=== PATIENT | female | born 1975 | race Caucasian/White ===

== ENCOUNTER → 2018-07-17 09:09 | Outpatient (CLI) | payer OTHER, SELFPAY ==
--- NOTE | 2018-07-17 | DI.MG.S_ITS ---
BILATERAL DIGITAL SCREENING MAMMOGRAM 3D/2D WITH CAD: 07/17/2018 CLINICAL: Routine screening. Family history of breast cancer. Comparison is made to exam [facility]: [facility]. The tissue of both breasts is heterogeneously dense. This may lower the sensitivity of mammography. Current study was also evaluated with a Computer Aided Detection (CAD) system. No significant masses, calcifications, or other findings are seen in either breast. There has been no significant interval change. IMPRESSION: NEGATIVE There is no mammographic evidence of malignancy. A 1 year screening mammogram is recommended. This exam was interpreted at Station ID: [id number]. NOTE: For mammograms, a report in lay terms will be sent to the patient. Approximately 15% of breast malignancies will not be visualized mammographically. In the management of a palpable breast mass, a negative mammogram must not discourage biopsy of a clinically suspicious lesion. Electronically Signed By: Geremias rich/raman:07/19/2018 07:41:23 letter sent: Normal Exam ACR BI-RADS Category 1: Negative 3341F
== END ==
PROVIDERS: PCP Family Medicine; Visit Provider Specialist
DX: Z12.31 Encounter for screening mammogram for malignant neoplasm of breast (principal); Z80.3 Family history of malignant neoplasm of breast
CPT/HCPCS: 77063; 77067

== ENCOUNTER → 2019-09-19 16:53 | Outpatient (CLI) | payer OTHER, SELFPAY ==
--- NOTE | 2019-09-19 16:55 | DI.RAD.S_ITS ---
PROCEDURE: XR LUMBAR SPINE 2-3V INDICATIONS: low back pain TECHNIQUE: 3 views of the lumbar spine were acquired. COMPARISON: None. FINDINGS: Bones: 5 [id number] vertebrae are present. There is normal bony alignment. No vertebral body compression fractures. No suspicious bony lesions. There is mild to moderate disc space narrowing seen at the L3-L4 and L4-L5 levels. Partially bridging anterior osteophytes are seen at the L4-L5 level. Lower lumbar spine facet arthropathy is seen. Soft tissues: Overlying bowel gas pattern is normal. No suspicious soft tissue calcifications. IMPRESSION: Lower lumbar spine degenerative changes are seen. Dictated by: Toby Cornell M.D. on 09/19/2019 at 16:51 Approved by: Toby Cornell M.D. on 09/19/2019 at 16:53
--- NOTE | 2019-09-19 16:55 | DI.RAD.S_ITS ---
PROCEDURE: XR PELVIS 1-2V INDICATIONS: low back pain TECHNIQUE: 1 view(s) of the pelvis acquired. COMPARISON: [facility], CR, XR LUMBAR SPINE 2-3V, 09/19/2019, 16:59. FINDINGS: Bones: No fractures or dislocations. No suspicious bony lesions. Soft tissues: Visualized bowel gas pattern is normal. No suspicious soft tissue calcifications. Pelvic phleboliths are incidentally noted. IMPRESSION: Unremarkable plain film of the pelvis. Dictated by: Toby Cornell M.D. on 09/19/2019 at 16:53 Approved by: Toby Cornell M.D. on 09/19/2019 at 16:54
== END ==
PROVIDERS: PCP Internal Medicine; Referring Provider Internal Medicine; Visit Provider Internal Medicine
DX: M54.5 Low back pain (principal); M47.816 Spondylosis without myelopathy or radiculopathy, lumbar region
CPT/HCPCS: 72100; 72170

== ENCOUNTER → 2019-09-22 14:43 | Outpatient (CLI) | payer OTHER, SELFPAY ==
--- NOTE | 2019-09-22 | DI.MG.S_ITS ---
BILATERAL DIGITAL SCREENING MAMMOGRAM 3D/2D WITH CAD: 09/22/2019 CLINICAL: Routine screening. Family history of breast cancer. Comparison is made to exams dated: 07/17/2018 mammogram and 10/05/2013 mammogram - [facility]. The tissue of both breasts is heterogeneously dense. This may lower the sensitivity of mammography. Current study was also evaluated with a Computer Aided Detection (CAD) system. No significant masses, calcifications, or other findings are seen in either breast. There has been no significant interval change. IMPRESSION: NEGATIVE There is no mammographic evidence of malignancy. A 1 year screening mammogram is recommended. This exam was interpreted at Station ID: [id number]. NOTE: For mammograms, a report in lay terms will be sent to the patient. Approximately 15% of breast malignancies will not be visualized mammographically. In the management of a palpable breast mass, a negative mammogram must not discourage biopsy of a clinically suspicious lesion. Electronically Signed By: Kemar chaudhry/raman:09/22/2019 16:26:46 letter sent: Normal Exam ACR BI-RADS Category 1: Negative 3341F
== END ==
PROVIDERS: PCP Internal Medicine; Referring Provider Internal Medicine; Visit Provider Internal Medicine
DX: Z12.31 Encounter for screening mammogram for malignant neoplasm of breast (principal); Z80.3 Family history of malignant neoplasm of breast
CPT/HCPCS: 77063; 77067

== ENCOUNTER → 2020-02-29 09:37 | Outpatient (CLI) | payer OTHER, SELFPAY ==
[2020-02-29 10:11] LABS: COVID19 -Nasal RAPID Negative (Negative)
== END ==
PROVIDERS: PCP Internal Medicine; Visit Provider Specialist
DX: Z01.812 Encounter for preprocedural laboratory examination (principal); Z20.828 Contact with and (suspected) exposure to other viral communicable diseases
CPT/HCPCS: 87635

== ENCOUNTER 2020-03-01 11:27 | Day surgery (SDC) | payer OTHER, SELFPAY ==
[2020-02-27 15:21] VITALS: BMI 26.6
[2020-03-01] VITALS (11 sets, daily range): BP systolic 90–126; BP diastolic 48–77; PULSE 64–82; RESP 12–16; TEMP 36.5–37.2; O2SAT 94–100; BMI 25.4
--- NOTE | 2020-03-01 | PATH_ITS ---
[facility] Accession Number: [id number] . 01 Material submitted: . uterus - UTERUS AND BILATERAL FALLOPIAN TUBES . 01 Clinical history: . OPB . 02 Diagnosis: Uterus and Bilateral Fallopian Tubes, Laparoscopic Supracervical Hysterectomy with Bilateral Salpingectomies (Aggregate Weight 185 grams): Weakly proliferative endometrium; negative for glandular hyperplasia, cytologic atypia, or malignancy. Myometrium with patchy involvement by adenomyosis and with multiple intramural leiomyomas (0.2-4.2 cm in greatest dimension). Uterine serosa with patchy, mild adhesions, nonspecific. Falllopian tubes x2, one with focal, mild chronic salpingitis; negative for epithelial atypia or malignancy. [facility] 03/07/2020 1258 Local . 02 Electronically signed: . Kayla Hernandez MD, Pathologist NPI- [id number] . 01 Gross description: . The specimen is received in formalin, labeled uterus and bilateral fallopian tubes and consists of a 185 gram fragmented uterus and bilateral fallopian tubes. The cervix is not identified. The specimen measures 14.0 x 13.0 x 5.0 cm in aggregate. The serosa is call-pink and smooth. The endometrium is call-pink and measures 0.1 cm in thickness. The myometrium is call-pink and trabeculated. There are multiple call-white whorled leiomyomata and leiomyomata fragments, ranging from 0.2 to 4.2 cm. No areas of hemorrhage, necrosis, or cystic degeneration are identified. The fallopian tubes measure 4.5 cm in length x 0.6 cm in diameter and 8.2 cm in length x 1.0 cm in diameter. The serosa is call-pink to pink-purple and smooth. Sectioning reveals a call mucosa and a stellate lumen measuring up to 0.5 cm in diameter. [employer]ilities [employer] sections are submitted. . A1-A2 -Director Facilities Maintenance candidate endometrium. A3 - Myometrium. A4-A7 - Director Facilities Maintenance leiomyomata. A8-A11 - Fallopian tubes, inventory representative simple cross-sections and bisected fimbria. (EA:[id number]) A12-A13 - Candidate endometrium. (EA:[id number]) /[facility] 03/06/2020 0949 Local . 02 Pathologist provided ICD-10: D25.0, N25.0 . 02 CPT . 221969 Performed at: 01 [facility] [address] [place] [address], [place], [place] [id number] MD Kemar Mckeon MD Phone: [phone] Performed at: 02 [facility] [address] [place], [place] [id number] MD Kathleen Cifuentes MD Phone: [phone]
[2020-03-01] MEDS: LACTATED RINGERS 1,000 ML 100 ML IV (12:13)
--- NOTE | 2020-03-01 12:34 | PM.PREOP ---
Pre-operative Note COVID-19 COVID-19 status: Negative Result date/Date tested (Pos, Neg/Pending): 02/29/20 Interval Note History & Physical reviewed/Exam performed by Physician: Yes Changes to H&P: No
[2020-03-01] MEDS: CEFAZOLIN 2 GM/100 ML FROZ.PIGGY IV (13:22)
[2020-03-01] MEDS: BUPIVACAINE 0.5% W/ EPI (PF) 30 ML VIAL INJ (13:48)
--- NOTE | 2020-03-01 13:54 | SUR.OPER ---
Lithotomy on padded OR bed. [place] Pad Positioner under torso. Head on pillow, arms padded and tucked at sides. Legs secured in padded yellow fins stirrups.
[2020-03-01] MEDS: ROPIVACAINE 0.2% PF 2 MG/ML 10ML AMP 20 ML INJ (14:40)
--- NOTE | 2020-03-01 15:12 | PM.OP.1 ---
Operative Date/Time/Diagnoses Date of procedure: 03/01/20 Time of procedure: 15:12 Pre-op diagnosis: Menorrhagia with uterine fibroids Post-op diagnosis: same Procedure & Clinicians Procedure: Laparoscopic supracervical hysterectomy with bilateral salpingectomies Same procedure as scheduled: Yes Indications: Menorrhagia with uterine fibroids Surgeon: Lizzy Booth [employer] Inspector: Ester Lantigua Click Yes if Unassisted: No Anesthesia Type: General Operative Notes Findings: Normal intra-abdominal contents, bilateral fallopian tubes status post tubal ligation, normal ovaries bilaterally, enlarged irregular-shaped uterus from fibroids Closure Type: primary Specimen(s): other (Uterus above the level of the bladder and fallopian tubes) Estimated Blood Loss (mL): 100 Blood products transfused: none Procedure in detail: Patient is brought to the operating room where she underwent general anesthesia and placed in low [facility] stirrups. She was prepped and draped in the usual sterile fashion. A check list was reviewed with the staff in the room prior to beginning of the case. Patient had pulsatile stockings in place and functional. 2 g of Ancef were in prior to beginning of the case.. A Kumar catheter was placed. A single-tooth tenaculum was placed on the anterior lip of the cervix and the cervix dilated to a #6 Hegar dilator. The uterine manipulator was unable to be placed due to the prior ablation. The area of the umbilical incision and the 5 mm right and left lower quadrant incisions were injected with Marcaine. An incision was made with scalpel. The verries needle was placed into the abdomen and confirmed in the appropriate place with withdrawal on a syringe and then free flow of fluid down through the needle. The abdomen was insufflated with CO2. The needle was removed and a 5 mm trocar placed without difficulty. There did not appear to be any damage is placement of the trocar. The right and left lower quadrant incisions were made with the scalpel and the trochars placed without damage to internal structures. The PK forceps were used to cauterize the mesosalpinx followed by the utero-ovarian ligaments and round ligaments on both sides. Sequential bites were taken down the broad ligaments. The uterine arteries were cauterized. An incision was made above the level bladder pushing the bladder away from the cervix. The SANTY loop was placed around the uterus and the uterus was amputated above the level of the bladder. Bleeding was controlled with the PK forceps. The PK forceps were used to cauterize in the endocervical canal. A supracervical incision was made and an 11 mm port placed. A 15 mm Endo Catch bag was placed in the abdomen. The uterus and tubes were placed in the bag and brought up through the suprapubic port site. The Adin O was placed. The uterus was hand morselized. The abdomen was reinsufflated and adequate hemostasis was noted. 10 cc of ropivacaine were placed over the cervix stump. The trochars were removed and the CO2 allowed escape from the abdomen. The fascia layer of the suprapubic site was repaired with 0 Polysorb suture. Skin was closed with 4-0 Monocryl suture at the suprapubic site and the other 3 sites. The patient went to recovery room in good condition. Counts of instruments and sponges were correct. Dr. Lantigua was present for the entire case to assist with holding of the camera, retraction, cauterizing the left side of the uterus, and assisting with morselization. Complications: none Post-operative Condition: stable Disposition: same day surgery Plan for aftercare: Patient prefers to be discharged home today. Follow-up appointment in 2 weeks.
--- NOTE | 2020-03-01 15:50 | SUR.PHASEI ---
Report called to LYNDA Shrestha. Pt transferred to room 220 by Emile León RN. , Kemar, notified of room assignment.
--- NOTE | 2020-03-01 19:41 | PC.NURSE ---
Discharge Note Patient A&O, VSS, RA, no complaints of chest pain or shortness of breath. Discharge packet given to patient along with follow-up instructions, no questions or concerns. All belongings packed and given to patient. PIV discontinued. Patient taken down via wheelchair to POV.
== END 2020-03-01 19:00 | disposition home or self-care (01) ==
LOC: OR 11:29 → AC 11:30
PROVIDERS: PCP Internal Medicine; Referring Provider Specialist; Visit Provider Specialist
PROC: 0UT94ZL Resection of Uterus, Supracervical, Percutaneous Endoscopic Approach (ICD-10-PCS; CPT 58542; principal; 2020-03-01 12:45)
DX: D25.1 Intramural leiomyoma of uterus (principal); N70.11 Chronic salpingitis; N73.6 Female pelvic peritoneal adhesions (postinfective)
CPT/HCPCS: 58542; J0690; J1100; J1885; J2405; J2704; J2795; J3010

== ENCOUNTER → 2020-07-05 13:17 | Outpatient (CLI) | payer OTHER, SELFPAY ==
[2020-07-05 16:47] LABS: Thyroid Stimulating Hormone 1.04 uIU/mL (0.47-4.68)
[2020-07-05 18:25] LABS: Free T4, Direct Thyroxine 1.46 ng/dL (0.78-2.19)
== END ==
PROVIDERS: PCP Internal Medicine; Referring Provider Internal Medicine; Visit Provider Internal Medicine
DX: R53.83 Other fatigue (principal); Z13.29 Encounter for screening for other suspected endocrine disorder
CPT/HCPCS: 36415; 84439; 84443

== ENCOUNTER → 2021-01-10 13:09 | Outpatient (CLI) | payer OTHER, SELFPAY ==
[2021-01-10 14:49] LABS: Add Manual Diff / Slide Review NO; Basophils Absolute Auto 100 /uL (0-100); Basophils Percent Auto 0.7 % (0-2); Eosinophils Absolute Auto 100 /uL (0-450); Hemoglobin 13.8 g/dL (12.0-16.0); Lymphocytes Absolute Auto 2300 /uL (1100-4500); Lymphocytes Percent Auto 30.6 % (25-40); Mean Corpuscular HGB Conc 33.7 % (30-36); Mean Corpuscular Hemoglobin 30.9 PG (26-34); Mean Corpuscular Volume 91.6 fL (80-100); Monocytes Absolute Auto 600 /uL (0-900); Monocytes Percent Auto 7.4 % (3-14); Neutrophils Absolute Auto 4500 /uL (1500-7000); Neutrophils Percent Auto 60.3 % (50-75); Platelet Count 305 X10^3/uL (150-400); Red Blood Cell Count 4.48 X10^6/uL (4.0-5.2); Red Cell Distribution Width 13.2 % (11.6-14.8); White Blood Cell Count 7.5 X10^3/uL (4.5-11.0)
[2021-01-10 14:53] LABS: Alanine Aminotransferase 19 IU/L (<35); Albumin 4.7 g/dL (3.5-5.0); Albumin Globulin Ratio 1.8 (1.0-2.8); Alkaline Phosphatase 56 U/L (38-126); Aspartate Aminotransferase 21 IU/L (14-36); Bilirubin Total 0.6 mg/dL (0.2-1.3); Blood Urea Nitrogen 18 mg/dL (7-17); Calcium 9.6 mg/dL (8.4-10.2); Carbon Dioxide 27 mmol/L (22-32); Chloride 103 mmol/L (98-107); Cholesterol 165 mg/dL (140-199); Estimated Glomerular Filt Rate > 60.0 mL/min (>60); Globulin 2.6 g/dL (1.7-4.1); Glucose 93 mg/dL (70-100); HDL Cholesterol 60 mg/dL (40-60); HEMOLYSIS < 15 (0-50); LDL Cholesterol Calculated 87 mg/dL (<100); Potassium 4.5 mmol/L (3.4-5.1); Sodium 138 mmol/L (137-145); Total Protein 7.3 g/dL (6.3-8.2); Triglycerides 90 mg/dL (35-150)
[2021-01-10 16:55] LABS: Hep C Virus Ab w/Reflex Quant NEGATIVE s/c (NEGATIVE)
[2021-01-11 03:36] LABS: Hepatitis B Surf AB Quant 16.9 mIU/mL (Immunity>9.9)
[2021-01-11 07:35] LABS: Parathyroid Hormone Int 40 pg/mL (15-65)
== END ==
PROVIDERS: PCP Internal Medicine; Referring Provider Naturopath; Visit Provider Naturopath
DX: Z00.00 Encounter for general adult medical examination without abnormal findings (principal); E23.7 Disorder of pituitary gland, unspecified; Z83.79 Family history of other diseases of the digestive system
CPT/HCPCS: 36415; 80053; 80061; 83970; 85025; 86706; 86803

== ENCOUNTER → 2021-09-16 16:24 | Outpatient (CLI) | payer OTHER, SELFPAY ==
--- NOTE | 2021-09-16 | DI.MG.S_ITS ---
BILATERAL DIGITAL SCREENING MAMMOGRAM 3D/2D WITH CAD: 09/16/2021 CLINICAL: Routine screening. Family history of breast cancer. Comparison is made to exams dated: 09/22/2019 mammogram, 07/17/2018 mammogram, and 10/05/2013 mammogram - [facility]. The tissue of both breasts is heterogeneously dense. This may lower the sensitivity of mammography. Current study was also evaluated with a Computer Aided Detection (CAD) system. No significant masses, calcifications, or other findings are seen in either breast. There has been no significant interval change. IMPRESSION: NEGATIVE There is no mammographic evidence of malignancy. A 1 year screening mammogram is recommended. This exam was interpreted at Station ID: [id number]. NOTE: For mammograms, a report in lay terms will be sent to the patient. Approximately 15% of breast malignancies will not be visualized mammographically. In the management of a palpable breast mass, a negative mammogram must not discourage biopsy of a clinically suspicious lesion. Electronically Signed By: Rey calderón/raman:09/17/2021 08:31:19 letter sent: Normal Exam ACR BI-RADS Category 1: Negative 3341F
== END ==
PROVIDERS: PCP Internal Medicine; Referring Provider Internal Medicine; Visit Provider Internal Medicine
DX: Z12.31 Encounter for screening mammogram for malignant neoplasm of breast (principal); Z80.3 Family history of malignant neoplasm of breast
CPT/HCPCS: 77063; 77067

== ENCOUNTER 2022-12-07 18:04 | Emergency (ER) | payer OTHER, SELFPAY ==
[2022-12-07 18:17] VITALS: BP 138/70; PULSE 66; RESP 16; TEMP 36.9; O2SAT 98; BMI 26.6
--- NOTE | 2022-12-07 21:43 | ED.SKABFB ---
HPI - Skin/Abscess/Foreign Bdy General Chief complaint: Skin/Abscess/Foreign Body Stated complaint: Stung t-3 Time Seen by Provider: 12/07/22 21:42 Source: patient Mode of arrival: Family Vehicle Limitations: no limitations History of Present Illness HPI narrative: This is a 47-year-old female with history of mast cell activation who presents with complaint of a sting from likely a yellow jacket about 3 days ago. Patient states it was her under arms she saw them flying around felt a sting and since then has had increasing redness and swelling on the underside of her arm. Patient states it just continues to slowly worsened. It is painful. She has not had any fevers or chills. No chest pain or shortness of breath, no tightness or swelling of her lips tongue. No rash elsewhere. No nausea or vomiting. She is chronic diarrhea she states no new changes. No black or bloody stools. Denies any other symptoms or issues. Patient has not had reactions like this in the past. She is not on any daily medications. Related Data Home Medications Medication Instructions Recorded Confirmed multivitamin,ev-hnro-yopnolrs 1 tab PO DAILY 07/15/18 01/21/22 (Complete Multivitamin tablet) Previous Rx's Medication Instructions Recorded clindamycin HCl 300 mg capsule 300 mg PO Q6H #28 caps 12/07/22 Allergies Allergy/AdvReac Type Severity Reaction Status Date / Time Penicillins Allergy Unknown Patient Verified 12/07/22 18:17 does not know. I was told that since I was a kid. Review of Systems Review of Systems ROS Unobtainable: All systems reviewed & are unremarkable except as noted in HPI and below Patient History Medical History Abnormal peripheral vision Fibroids (~2009) Hearing loss Heavy menstrual period (~2011) History of tumor (~1998) Irregular menstrual cycle Painful menstrual periods Peripheral vision loss Presence of intrauterine contraceptive device (06/02/16) Surgical History Anesthesia History of knee surgery (~2015) History of prior ablation treatment (~2017) Status post delivery (~1994) Status post cholecystectomy (~1992) Status post tubal ligation Family History Father Parkinson's disease Kidney failure Mother Diabetes mellitus Congestive heart failure Sister Diabetes mellitus Grandmother Heart disease Hyperlipidemia Hypertension Social History household members: spouse Smoking Status: Former smoker Tobacco: How many years used: 20 second hand exposure: No alcohol intake: current substance use type: does not use Smoking Status: Former smoker alcohol intake frequency: a few times a week Substance Use Type: does not use Exam Narrative Exam Narrative: GENERAL: Alert and oriented x three, female in mild distress. HEENT: Head normocephalic, atraumatic, EOMI, pupils reactive, face symmetric, moist mucous membranes NECK: Supple, full range of motion CARDIOVASCULAR: Regular rate and rhythm without murmurs, rubs or gallops. RESPIRATORY: Breath sounds equal bilaterally, no wheezes rales or rhonchi. ABDOMEN: Soft, nontender. Normoactive bowel sounds all 4 quadrants. No guarding or rebound, rigidity, no mass EXTREMITIES: Normal range of motion, no clubbing or edema. Neurovascularly intact. Patient has swelling knee upper arm of the right upper extremity on the underside extending from about the elbow upwards. Does not really include the joint itself. There is erythema there is some slight swelling, blanches easily. There is no petechiae vesicles or other skin changes. Feels slightly tight but no induration, no fluid collections or fluctuance. No stinger is easily visualized. There does appear to be a small spot where patient was stung. NEUROLOGICAL: Cranial nerves II through XII grossly intact. Moving all extremities SKIN: Warm, dry, no petechiae, no rashes or lesions. Initial Vital Signs Initial Vital Signs: Vital Signs Temperature 98.5 F 12/07/22 18:17 Pulse Rate 66 12/07/22 18:17 Respiratory Rate 16 12/07/22 18:17 Blood Pressure 138/70 12/07/22 18:17 Pulse Oximetry 98 12/07/22 18:17 Oxygen Delivery Method Room Air 12/07/22 18:17 Course Orders Ordered: Discontinued Medications Clindamycin HCl (Clindamycin 150 Mg Capsule) 300 mg PO NOW ONE Stop: 12/07/22 21:50 Last Admin: 12/07/22 21:52 Dose: 300 mg Documented By: KEMAL Vital Signs Vital signs: Vital Signs - 8 hr 12/07/22 21:53 Pulse Rate 83 Respiratory Rate 16 Blood Pressure 119/64 Pulse Oximetry 97 MDM - Skin/Abscess/Foreign Bdy MDM Narrative Medical decision making narrative: 47-year-old female who appears to be developing a cellulitis on her right upper extremity. Does not appear to be having any allergic type reaction at this time about 3 days since initial and has had continued redness slight swelling of the area that is extending. Patient has appropriate vitals no changes concerning for sepsis or other systemic changes. Plan for oral antibiotic, close watching and return precautions. Patient was marked here in the emergency department. Discharge Plan Departure Patient Disposition: Home Clinical Impression: Cellulitis Qualifiers: Site of cellulitis: extremity Site of cellulitis of extremity: upper extremity Laterality: right Qualified Code(s): L03.113 - Cellulitis of right upper limb Instructions: DI for Cellulitis -- Adult Activity Restrictions/Additional Instructions: You appear to have a cellulitis or infection of the skin of her upper extremity. Take antibiotics until completed. It usually takes about 24-48 hours for antibiotics to make much change to the infection. Prescription sent to [facility] in [place]. Please return for fevers, rapidly worsening swelling, redness, pain, new numbness, tingling or weakness. Difficulty with movement of your arm, chest pain or shortness of breath, nausea or vomiting, passing out or other new or concerning changes. Prescriptions: New clindamycin HCl 300 mg capsule 300 mg PO Q6H Qty: 28 0RF No Action Complete Multivitamin tablet 1 tab PO DAILY Referrals: Jose Enrique Marshall MD [Primary Care Provider] - Stand Alone Forms: Patient Portal/API
[2022-12-07] MEDS: CLINDAMYCIN 150 MG CAPSULE 300 MG PO (21:52)
[2022-12-07 21:53] VITALS: BP 119/64; PULSE 83; RESP 16; O2SAT 97
== END 2022-12-07 21:57 | disposition home or self-care (01) ==
PROVIDERS: Emergency Provider Emergency Medicine; PCP Internal Medicine
DX: L03.113 Cellulitis of right upper limb (principal)
CPT/HCPCS: 99283

== ENCOUNTER → 2023-02-12 07:16 | Outpatient (CLI) | payer OTHER, SELFPAY ==
[2023-02-12 08:23] LABS: Add Manual Diff / Slide Review NO; Basophils Absolute Auto 0 /uL (0-100); Basophils Percent Auto 0.7 % (0-2); Eosinophils Absolute Auto 100 /uL (0-450); Eosinophils Percent Auto 1.5 % (2-4); Hematocrit 38.6 % (36-46); Hemoglobin 13.2 g/dL (12.0-16.0); Lymphocytes Absolute Auto 1700 /uL (1100-4500); Lymphocytes Percent Auto 31.6 % (25-40); Mean Corpuscular Hemoglobin 31.3 PG (26-34); Monocytes Absolute Auto 500 /uL (0-900); Monocytes Percent Auto 9.4 % (3-14); Neutrophils Absolute Auto 3000 /uL (1500-7000); Neutrophils Percent Auto 56.8 % (50-75); Platelet Count 271 X10^3/uL (150-400); Red Cell Distribution Width 13.7 % (11.6-14.8); White Blood Cell Count 5.3 X10^3/uL (4.5-11.0)
[2023-02-12 08:27] LABS: Hemoglobin A1C% w Est Avg Glu 5.5 % (4.0-6.0)
[2023-02-12 08:47] LABS: Alanine Aminotransferase 16 IU/L (<35); Albumin 4.1 g/dL (3.5-5.0); Albumin Globulin Ratio 1.8 (1.0-2.8); Alkaline Phosphatase 52 U/L (38-126); Aspartate Aminotransferase 18 IU/L (14-36); BUN Creatinine Ratio 23.3 (6-22); Bilirubin Total 0.4 mg/dL (0.2-1.3); Blood Urea Nitrogen 17 mg/dL (7-17); Calcium 9.3 mg/dL (8.4-10.2); Carbon Dioxide 25 mmol/L (22-32); Chloride 105 mmol/L (98-107); Cholesterol 135 mg/dL (140-199); Estimated Glomerular Filt Rate > 60 mL/min (>60); Globulin 2.3 g/dL (1.7-4.1); Glucose 96 mg/dL (70-100); HDL Cholesterol 54 mg/dL (40-60); HEMOLYSIS < 15 (0-50); LDL Cholesterol Calculated 69 mg/dL (<100); Potassium 4.5 mmol/L (3.4-5.1); Sodium 136 mmol/L (137-145); Total Protein 6.4 g/dL (6.3-8.2); Triglycerides 58 mg/dL (35-150)
[2023-02-14 15:10] LABS: Insulin Level Total 3.9 uIU/mL (2.6-24.9)
== END ==
PROVIDERS: PCP Internal Medicine; Referring Provider Naturopath; Visit Provider Naturopath
DX: Z00.00 Encounter for general adult medical examination without abnormal findings (principal); F41.9 Anxiety disorder, unspecified; Z83.49 Family history of other endocrine, nutritional and metabolic diseases
CPT/HCPCS: 36415; 80053; 80061; 83036; 83525; 85025

== ENCOUNTER → 2023-07-08 09:18 | Outpatient (CLI) | payer OTHER, SELFPAY | PROVIDERS: PCP Internal Medicine; Visit Provider Nurse Practitioner Family | DX: R35.0 Frequency of micturition (principal) | CPT/HCPCS: 87086 ==

== ENCOUNTER → 2023-11-12 17:16 | Outpatient (CLI) | payer OTHER, SELFPAY | PROVIDERS: PCP Internal Medicine; Visit Provider Nurse Practitioner Family | DX: T14.8XXA Other injury of unspecified body region, initial encounter (principal); L08.9 Local infection of the skin and subcutaneous tissue, unspecified | CPT/HCPCS: 87070; 87075; 87205; 87252 ==

== ENCOUNTER 2023-11-15 09:30 | Emergency (ER) | payer OTHER, SELFPAY ==
[2023-11-15 09:34] VITALS: BP 134/64; PULSE 70; RESP 18; TEMP 36.3; O2SAT 96; BMI 27.2
--- NOTE | 2023-11-15 09:57 | PC.NURSE ---
Addendum entered by Sherrie Vance R.N. 11/15/23 10:31: Pt denies any changes in vision. Original Note: Pt seen by dermatologust approximately 1 week ago. Pt was camping on [facility] and derm suspected that she had 2 infected mosquito bikes. Pt given rx for doxycycline. Pt seen at [facility] and reports that swabs were done to test for staph and shingles and pt advised to come to ED if rash does not improve. Pt states that she is experiencing an 8/10 pain and that she has been taking abx x1 week. Red swollen rash noted on pt's nose and under pt's eyes. Scabbed lesion noted on pt's right side of nose. Pt denies fevers, drainage, n/v or fevers. A&Ox4.
--- NOTE | 2023-11-15 10:18 | ED.SKABFB ---
HPI - Skin/Abscess/Foreign Bdy General Chief complaint: Skin/Abscess/Foreign Body Stated complaint: Rt eye and face irritation Time Seen by Provider: 11/15/23 09:59 History of Present Illness HPI narrative: patient is a 48-year-old femalewithout any significant past medical history comes into the ED for evaluation of rash/ cellulitis to the nose. This has been ongoing and persistent for the past week. States that she initially thought that it was due to a bug bite did see a horse race timer 1 week ago and was started on doxycycline. Three days later she states that she was having some worsening symptoms so went to a walk-in clinic and was diagnosed and treated prophylactically for Shingles. She states that she has been taking both antibiotics and antivirals as prescribed, however she is having persistent pain but denies any worsening of the rash or spreading of the rash. She denies any symptoms such as headache visual disturbances chest pain shortness breath fever chills nausea vomiting abdominal pain or any other GI/ symptoms at this time Related Data Home Medications Medication Instructions Recorded Confirmed doxycycline monohydrate 100 mg 100 mg PO BID 11/12/23 11/12/23 capsule Previous Rx's Medication Instructions Recorded mupirocin 2 % topical ointment 1 applic topical TID #15 grams 11/12/23 valacyclovir 1 gram tablet 1,000 mg PO TID 7 days #21 tabs 11/12/23 gabapentin enacarbil 300 mg 300 mg PO DAILY #7 tabs 11/15/23 tablet,extended release Allergies Allergy/AdvReac Type Severity Reaction Status Date / Time Penicillins Allergy Unknown Patient Verified 11/12/23 16:47 does not know. I was told that since I was a kid. Review of Systems Review of Systems Narrative: HEENT: Denies headache, eye drainage, eye irritation, head trauma, sore throat, voice change Cardiovascular: Denies any chest pain, palpitations, shortness of breath, tachycardia Respiratory: Denies any shortness of breath, cough, wheeze, stridor GI/: Denies any abdominal pain, nausea, vomiting, diarrhea, bright red blood per rectum, melanotic stools, urinary frequency, urinary retention, dysuria, hematuria MSK: Denies any joint pain, muscle pains, swelling Skin: positive rash to face Neuro: Denies any headache, lightheadedness, dizziness, fainting, weakness Psych: Denies SI/HI Patient History Medical History Abnormal peripheral vision Fibroids (~2009) Hearing loss Heavy menstrual period (~2011) History of tumor (~1998) Irregular menstrual cycle Painful menstrual periods Peripheral vision loss Presence of intrauterine contraceptive device (06/02/16) Surgical History Anesthesia History of knee surgery (~2015) History of prior ablation treatment (~2017) Status post delivery (~1994) Status post cholecystectomy (~1992) Status post tubal ligation Family History Father Parkinson's disease Kidney failure Mother Diabetes mellitus Congestive heart failure Sister Diabetes mellitus Grandmother Heart disease Hyperlipidemia Hypertension Social History household members: spouse Smoking Status: Former smoker Tobacco: How many years used: 20 second hand exposure: No alcohol intake: current substance use type: does not use Smoking Status: Former smoker alcohol intake frequency: a few times a week Substance Use Type: does not use Exam Narrative Exam Narrative: General: Cooperative, comfortable, well-developed, not in acute distress HEENT: Normocephalic, atraumatic, PERRLA, normal sclera, eyelids normal, eye exam was performed, negative corneal abrasions or any other abnormal findings with fluorescein stain, right eye 15 mmHg, left eye 15mmg hg, negative Chantal sign, there are no lesions noted to the tympanic membrane inner or outer ear or auditory canal, the lesion does not extend to the tip of the nose Neck: Active full range of motion, atraumatic Chest: Normal to inspection, negative crepitus, no overlying erythema ecchymosis Respiratory: Normal respiratory effort, not in acute respiratory distress, clear to auscultation bilaterally negative cough, wheeze, tachypnea, rhonchi, rales Cardiology: Regular rate rhythm negative gallop, murmur, rubs GI/: Normal to inspection, soft, nonrigid, no tenderness to palpation, exam deferred MSK: Full range of active range of motion of all 4 extremities, atraumatic Skin: lesion noted to the outer aspect of the right nose, does not appear to spread to the inner nares, there is no spread to the face or conjunctiva, there is no streaking crepitus or any other signs of infection Neuro: Alert awake oriented x3, moves all 4 extremities spontaneously, cranial nerves intact, able to answer all questions appropriately follows commands appropriately Psych: Cooperative, negative suicidal or homicidal ideations Initial Vital Signs Initial Vital Signs: Vital Signs Temperature 97.4 F L 11/15/23 09:34 Pulse Rate 70 11/15/23 09:34 Respiratory Rate 18 11/15/23 09:34 Blood Pressure 134/64 11/15/23 09:34 Pulse Oximetry 96 11/15/23 09:34 Oxygen Delivery Method Room Air 11/15/23 09:34 Course Orders Ordered: Discontinued Medications Fluorescein Sodium (Fluorescein 1 Mg Strip) 1 mg EYE-BOTH NOW ONE Stop: 11/15/23 10:19 Last Admin: 11/15/23 10:28 Dose: 1 mg Documented By: YASMINE Gabapentin (Gabapentin 300 Mg Capsule) 300 mg PO NOW ONE Stop: 11/15/23 11:27 Last Admin: 11/15/23 11:37 Dose: 300 mg Documented By: ELINA Proparacaine HCl (Proparacaine 0.5% Ophth Landy) 1 drops EYE-BOTH NOW ONE Stop: 11/15/23 10:19 Last Admin: 11/15/23 10:28 Dose: 2 drop Documented By: YASMINE Vital Signs Vital signs: Vital Signs - 8 hr 11/15/23 09:34 11/15/23 11:37 11/15/23 11:44 Temperature 97.4 F L Pulse Rate 70 60 66 Respiratory Rate 18 20 18 Blood Pressure 134/64 115/70 Pulse Oximetry 96 98 99 Oxygen Delivery Method Room Air Room Air Room Air MDM - Skin/Abscess/Foreign Bdy Differential Diagnosis Differential diagnosis: Likely abscess of skin or subcutaneous tissue, herpes zoster and cellulitis MDM Narrative Medical decision making narrative: patient is a 48-year-old female who presents for persistent facial cellulitis versus shingles, has already been started and been treated with antivirals and antibiotics, initially started by her horse race timer, she states that she is having persistent but not any worsening symptoms therefore decided to come into the ED for further evaluation and treatment. Eye exam was performed which did not show any abnormal findings, there are no signs or symptoms of lesions to the tympanic membrane internal or external auditory canal. The lesion according to patient and family members state that it is significantly improved but because it feels more painful decided to come into the ED for evaluation treatment. Symptoms more consistent with persistent cellulitis and shingles however there are no concerns for Milvia Young, visual acuity / eye exam are normal, patient already on antivirals, will add gabapentin for pain, was instructed to follow up with Dermatology and PCP in 1 day for further evaluation treatment. Discharge Plan Departure Patient Disposition: Home Clinical Impression: Cellulitis Activity Restrictions/Additional Instructions: please follow-up with your horse race timer in 1-2 days for continued evaluation treatment of your symptoms Please read the discharge instructions sheet carefully and bring all papers to all doctor follow-up visits, as it may contain information that your doctor may want to see. Disease processes change and evolve, if your symptoms worsen or if you develop any new symptoms that are concerning to you please return for evaluation. Your evaluation today does not show any evidence of any life-threatening/serious illnesses requiring admission to the hospital or surgery. Please follow-up with your doctor for re-evaluation in approximately 1 day. Seek immediate medical attention for any worrisome symptoms. Prescriptions: New gabapentin enacarbil 300 mg tablet extended release 300 mg PO DAILY Qty: 7 0RF No Action doxycycline monohydrate 100 mg capsule 100 mg PO BID valacyclovir 1 gram tablet 1,000 mg PO TID 7 Days Qty: 21 0RF mupirocin 2 % ointment 1 applic topical TID Qty: 15 0RF Referrals: Jose Enrique Marshall MD [Primary Care Provider] - Stand Alone Forms: Patient Portal/API
[2023-11-15] MEDS: PROPARACAINE 0.5% OPHTH SOL 1 DROPS EYE-BOTH (10:28)
[2023-11-15] MEDS: FLUORESCEIN 1 MG STRIP EYE-BOTH (10:28)
[2023-11-15 11:37] VITALS: BP 115/70; PULSE 60; RESP 20; O2SAT 98
[2023-11-15] MEDS: GABAPENTIN 300 MG CAPSULE PO (11:37)
[2023-11-15 11:44] VITALS: PULSE 66; RESP 18; O2SAT 99
== END 2023-11-15 11:45 | disposition home or self-care (01) ==
PROVIDERS: Emergency Provider Student in an Organized Health Care Education/Training Program; PCP Internal Medicine
DX: J34.0 Abscess, furuncle and carbuncle of nose (principal); Z87.891 Personal history of nicotine dependence
CPT/HCPCS: 99283

== ENCOUNTER → 2024-01-08 12:50 | Outpatient (CLI) | payer OTHER, SELFPAY ==
--- NOTE | 2024-01-08 12:52 | DI.MG.S_ITS ---
BILATERAL DIGITAL SCREENING MAMMOGRAM 3D/2D WITH CAD: 01/08/2024 CLINICAL: Routine screening. Family history of breast cancer. Comparison is made to exams dated: 09/16/2021 mammogram, 09/22/2019 mammogram, and 07/17/2018 mammogram - [facility]. The breasts are heterogeneously dense, which may obscure small masses (category c / 51-75% glandular tissue). Current study was also evaluated with a Computer Aided Detection (CAD) system. No significant masses, calcifications, or other findings are seen in either breast. There has been no significant interval change. IMPRESSION: NEGATIVE There is no mammographic evidence of malignancy. A 1 year screening mammogram is recommended. Based on the Tyrer Cuzick model (a risk assessment model) the patient's lifetime risk is 9.6% and her 10 year risk is 2.2%. According to the ACR, ACS, and NCCN guidelines, an annual breast MRI exam along with mammogram is recommended if the patient's lifetime risk is 20% or greater. This exam was interpreted at Station ID: [id number]. NOTE: For mammograms, a report in lay terms will be sent to the patient. Approximately 15% of breast malignancies will not be visualized mammographically. In the management of a palpable breast mass, a negative mammogram must not discourage biopsy of a clinically suspicious lesion. Electronically Signed By: Rey calderón/raman:01/08/2024 16:37:24 letter sent: Normal Exam ACR BI-RADS Category 1: Negative
== END ==
PROVIDERS: PCP Internal Medicine; Referring Provider Internal Medicine; Visit Provider Internal Medicine
DX: Z12.31 Encounter for screening mammogram for malignant neoplasm of breast (principal); Z80.3 Family history of malignant neoplasm of breast; R92.333 Mammographic heterogeneous density, bilateral breasts
CPT/HCPCS: 77063; 77067

== ENCOUNTER 2024-03-25 13:21 | Emergency (ER) | payer OTHER, SELFPAY ==
[2024-03-25 13:25] VITALS: BP 139/63; PULSE 72; RESP 16; TEMP 36.7; O2SAT 98; BMI 20.1
[2024-03-25 13:56] LABS: Add Manual Diff / Slide Review NO; Basophils Absolute Auto 100 /uL (0-100); Basophils Percent Auto 0.7 % (0-2); Eosinophils Absolute Auto 100 /uL (0-450); Eosinophils Percent Auto 1.3 % (2-4); Hematocrit 38.8 % (36-46); Hemoglobin 13.3 g/dL (12.0-16.0); Lymphocytes Absolute Auto 2300 /uL (1100-4500); Lymphocytes Percent Auto 26.5 % (25-40); Mean Corpuscular HGB Conc 34.3 % (30-36); Mean Corpuscular Hemoglobin 31.4 PG (26-34); Mean Corpuscular Volume 91.7 fL (80-100); Monocytes Absolute Auto 600 /uL (0-900); Monocytes Percent Auto 6.9 % (3-14); Neutrophils Absolute Auto 5700 /uL (1500-7000); Neutrophils Percent Auto 64.6 % (50-75); Platelet Count 375 X10^3/uL (150-400); Red Blood Cell Count 4.23 X10^6/uL (4.0-5.2); Red Cell Distribution Width 13.5 % (11.6-14.8); White Blood Cell Count 8.9 X10^3/uL (4.5-11.0)
[2024-03-25 14:03] LABS: Alanine Aminotransferase 32 IU/L (<35); Albumin 4.2 g/dL (3.5-5.0); Albumin Globulin Ratio 1.7 (1.0-2.8); Alkaline Phosphatase 74 U/L (38-126); Aspartate Aminotransferase 30 IU/L (14-36); BUN Creatinine Ratio 27.9 (6-22); Bilirubin Total 0.4 mg/dL (0.2-1.3); Blood Urea Nitrogen 19 mg/dL (7-17); Calcium 8.8 mg/dL (8.4-10.2); Carbon Dioxide 22 mmol/L (22-32); Chloride 108 mmol/L (98-107); Estimated Glomerular Filt Rate > 60 mL/min (>60); Globulin 2.5 g/dL (1.7-4.1); Glucose 121 mg/dL (70-100); HEMOLYSIS 28 (0-50); Lipase 164 U/L (23-300); Potassium 4.1 mmol/L (3.4-5.1); Sodium 137 mmol/L (137-145); Total Protein 6.7 g/dL (6.3-8.2)
--- NOTE | 2024-03-25 14:45 | ED.ABDPAIN ---
HPI - Abdominal Pain <Jeff Meyer PA-C - Last Filed: 03/25/24 18:59> General Chief Complaint: Abdominal Pain Stated Complaint: lower rt quad px Time Seen by Provider: 03/25/24 14:00 Source: patient Mode of arrival: Family Vehicle History of Present Illness HPI narrative: this is a 48-year-old female presents emergency department due to Acute onset right-sided abdominal pain onset this morning described as a 9/10 in severity. She states that she was in [place] about a week ago where she developed diarrhea and was given multiple antibiotics which she took which helped improve her diarrhea. She denies anyDiarrhea currently. Reports some nausea. History of cholecystectomy, tubal ligation, partial hysterectomy. Denies any fevers. Related Data Home Medications Medication Instructions Recorded Confirmed doxycycline monohydrate 100 mg 100 mg PO BID 11/12/23 11/12/23 capsule Previous Rx's Medication Instructions Recorded mupirocin 2 % topical ointment 1 applic topical TID #15 grams 11/12/23 gabapentin enacarbil 300 mg 300 mg PO DAILY #7 tabs 11/15/23 tablet,extended release Allergies Allergy/AdvReac Type Severity Reaction Status Date / Time Penicillins Allergy Unknown Patient Verified 11/12/23 16:47 does not know. I was told that since I was a kid. Review of Systems <Jeff Meyer PA-C - Last Filed: 03/25/24 18:59> Review of Systems Narrative: GENERAL: Denies chills, fatigue, malaise, fever, sweats. HEENT: Denies sinus pain, ear pain, sore throat, difficulty swallowing, dizziness. RESPIRATORY: Denies dyspnea, cough, wheezing, hemoptysis, sputum. CARDIOVASCULAR: Denies chest pain, palpitations, orthopnea, edema, GASTROINTESTINAL: Reports right-sided abdominal pain, nauseaDenies , vomiting, diarrhea, constipation, melena. : Denies dysuria, frequency, incontinence, hematuria, urinary retention. MUSCULOSKELETAL: denies weakness, joint pain, or bony pain SKIN: Denies rash, skin lesions, or other NEUROLOGIC: Denies weakness, headache, numbness, change in speech, confusion, seizures, incoordination. PSYCHIATRIC: No concerning psychosocial issues. 12 point review of systems is negative except for those stated above Patient History <GENA Chowdhury Last Filed: 03/25/24 18:59> Medical History Abnormal peripheral vision Fibroids (~2009) Hearing loss Heavy menstrual period (~2011) History of tumor (~1998) Irregular menstrual cycle Painful menstrual periods Peripheral vision loss Presence of intrauterine contraceptive device (06/02/16) Surgical History Anesthesia History of knee surgery (~2015) History of prior ablation treatment (~2017) Status post delivery (~1994) Status post cholecystectomy (~1992) Status post tubal ligation Family History Father Parkinson's disease Kidney failure Mother Diabetes mellitus Congestive heart failure Sister Diabetes mellitus Grandmother Heart disease Hyperlipidemia Hypertension Social History household members: spouse Smoking Status: Former smoker Tobacco: How many years used: 20 second hand exposure: No alcohol intake: current substance use type: does not use Smoking Status: Former smoker alcohol intake frequency: a few times a week Exam <Jeff Meyer PA-C - Last Filed: 03/25/24 18:59> Narrative Exam Narrative: GENERAL: Well-developed patient, in mild distress. HEAD: Atraumatic. Normocephalic. EYES: Pupils equal round and reactive. Extraocular motions intact. No scleral icterus. No injection or drainage. ENT: Nose without bleeding, purulent drainage. Throat without erythema, tonsillar hypertrophy or exudate. Airway patent. NECK: Trachea midline. Non tender EXTREMITIES: No edema or joint tenderness. NEURO: AOx3. SKIN: No rash or erythema of visible areas abdomen: right-sided abdominal tenderness to palpation Initial Vital Signs Initial Vital Signs: Vital Signs Temperature 98.1 F 03/25/24 13:25 Pulse Rate 72 03/25/24 13:25 Respiratory Rate 16 03/25/24 13:25 Blood Pressure 139/63 03/25/24 13:25 Pulse Oximetry 98 03/25/24 13:25 Oxygen Delivery Method Room Air 03/25/24 13:25 <Laverne Conner DO - Last Filed: 03/26/24 19:30> Initial Vital Signs Initial Vital Signs: Vital Signs Temperature 98.1 F 03/25/24 13:25 Pulse Rate 72 03/25/24 13:25 Respiratory Rate 16 03/25/24 13:25 Blood Pressure 139/63 03/25/24 13:25 Pulse Oximetry 98 03/25/24 13:25 Oxygen Delivery Method Room Air 03/25/24 13:25 Course <Jeff Meyer PA-C - Last Filed: 03/25/24 18:59> Orders Ordered: Discontinued Medications Acetaminophen (Acetaminophen 325 Mg Tablet) 975 mg PO NOW ONE Stop: 03/25/24 16:23 Last Admin: 03/25/24 16:30 Dose: 975 mg Documented By: TEDDY Ondansetron HCl (Ondansetron 4 Mg/2 Ml Inj) 4 mg IV NOW PRN PRN Reason: Nausea And Vomiting Ondansetron HCl (Ondansetron 4 Mg Odt) 4 mg PO NOW PRN PRN Reason: Nausea And Vomiting Last Admin: 03/25/24 16:30 Dose: 4 mg Documented By: TEDDY Vital Signs Vital signs: Vital Signs - 8 hr 03/25/24 13:25 03/25/24 17:38 Temperature 98.1 F Pulse Rate 72 72 Respiratory Rate 16 16 Blood Pressure 139/63 130/60 Pulse Oximetry 98 99 Oxygen Delivery Method Room Air Room Air <Laverne Conner DO - Last Filed: 03/26/24 19:30> Orders Ordered: Discontinued Medications Acetaminophen (Acetaminophen 325 Mg Tablet) 975 mg PO NOW ONE Stop: 03/25/24 16:23 Last Admin: 03/25/24 16:30 Dose: 975 mg Documented By: TEDDY Ondansetron HCl (Ondansetron 4 Mg/2 Ml Inj) 4 mg IV NOW PRN PRN Reason: Nausea And Vomiting Ondansetron HCl (Ondansetron 4 Mg Odt) 4 mg PO NOW PRN PRN Reason: Nausea And Vomiting Last Admin: 03/25/24 16:30 Dose: 4 mg Documented By: TEDDY Vital Signs Vital signs: Vital Signs - 8 hr 03/25/24 13:25 03/25/24 17:38 Temperature 98.1 F Pulse Rate 72 72 Respiratory Rate 16 16 Blood Pressure 139/63 130/60 Pulse Oximetry 98 99 Oxygen Delivery Method Room Air Room Air MDM - Abdominal Pain <Jeff Meyer PA-C - Last Filed: 03/25/24 18:59> Lab Data 03/25/24 13:42 03/25/24 13:42 Labs: Lab Results 03/25/24 Range/Units 13:42 WBC 8.9 (4.5-11.0) X10^3/uL RBC 4.23 (4.0-5.2) X10^6/uL Hgb 13.3 (12.0-16.0) g/dL Hct 38.8 (36-46) % MCV 91.7 (80-100) fL MCH 31.4 (26-34) PG MCHC 34.3 (30-36) % RDW 13.5 (11.6-14.8) % Plt Count 375 (150-400) X10^3/uL Neut % (Auto) 64.6 (50-75) % Lymph % (Auto) 26.5 (25-40) % [place] % (Auto) 6.9 (3-14) % Eos % (Auto) 1.3 L (2-4) % Baso % (Auto) 0.7 (0-2) % Neut # (Auto) 5700 (7371-3815) /uL Lymph # (Auto) 2300 (1706-7641) /uL [place] # (Auto) 600 (0-900) /uL Eos # (Auto) 100 (0-450) /uL Baso # (Auto) 100 (0-100) /uL Sodium 137 (137-145) mmol/L Potassium 4.1 (3.4-5.1) mmol/L Chloride 108 H (98-107) mmol/L Carbon Dioxide 22 (22-32) mmol/L BUN 19 H (7-17) mg/dL Creatinine 0.68 (0.52-1.04) mg/dL Estimated GFR > 60 (>60) mL/min BUN/Creatinine Ratio 27.9 H (6-22) Glucose 121 H (70-100) mg/dL Calcium 8.8 (8.4-10.2) mg/dL Total Bilirubin 0.4 (0.2-1.3) mg/dL AST 30 (14-36) IU/L ALT 32 (<35) IU/L Alkaline Phosphatase 74 (38-126) U/L Total Protein 6.7 (6.3-8.2) g/dL Albumin 4.2 (3.5-5.0) g/dL Globulin 2.5 (1.7-4.1) g/dL Albumin/Globulin Ratio 1.7 (1.0-2.8) Lipase 164 (23-300) U/L Point of care testing: Urine Dip Bedside Urine Glucose Negative Bedside Urine Bilirubin - Negative Bedside Urine Ketone - Negative Urine Specific Dorena 1.015 Bedside Urine Occult Blood - Negative Bedside Urine pH 5.5 Bedside Urine Protein - Negative Bedside Urine Urobilinogen - Negative Bedside Urine Nitrite - Negative Bedside Urine Leukocytes - Negative Esterase Imaging Data CT scan - abdomen/pelvis: Radiologist's Impression: [address] [address] [address] Scan Report Signed Patient: Katie Kinsey MR#: [id number] : 1975 Acct:[id number] Age/Sex: 48 / F Date of Service: 03/25/24 Loc: ED Accession Number: [id number] Procedure: CT abdomen pelvis w con Ordering Provider: Jeff Meyer PA-C PROCEDURE: CT ABDOMEN PELVIS W CON INDICATIONS: R sided abdominal pain TECHNIQUE: After the administration of intravenous contrast, axial sections acquired from the lung bases to the pubic symphysis. Coronal and sagittal reformats were performed. For radiation dose reduction, the following was used: automated exposure control, adjustment of mA and/or kV according to patient size. COMPARISON: None. FINDINGS: Image quality: Diagnostic. Lower Chest: No significant findings. ABDOMEN: Liver: No solid mass. Gallbladder: Absent Biliary ducts: No biliary dilation. Pancreas: There are 2 small low-density lesions, likely representing subcentimeter IPMN. Spleen: Size is within normal limits. Adrenal Glands: No adrenal nodules. Kidneys and Ureters: No hydronephrosis. No solid mass. No complex renal cystic lesion which requires follow up. Stomach and Bowel: Large incidental duodenal diverticulum containing predominantly air and some debris. Normal colonic caliber, without significant wall thickening. Question identification of a gas-filled appendix overlying right psoas muscle. Reference axial image 92 of series 2. Diverticulosis without evidence of acute diverticulitis. Peritoneum: No abnormal intraperitoneal fluid. No free air. Ventral Wall: No significant ventral hernia. Abdominal Nodes: No retroperitoneal or mesenteric adenopathy by size criteria. Vessels: Aorta and inferior vena cava are normal in size. PELVIS: Pelvic Organs: Retroverted uterus. No adnexal masses.. Bladder: No bladder wall thickening, accounting for underdistention. Pelvic Nodes: No enlarged lymph nodes. Miscellaneous: No inguinal hernias are seen. Bones: No aggressive osseous abnormality. Disc bulge with mild canal stenosis at L4-L5. IMPRESSION: 1. No acute abdominal process noted. 2. Normal appendix. 3. Remote cholecystectomy. 4. Large duodenal diverticulum, typically an incidental finding. 5. Diverticulosis without evidence of acute diverticulitis. 6. There are a couple of small low-density pancreatic lesions, likely representing subcentimeter IPMN. Comment: Consider follow-up pancreas protocol MRI in 12 months. Dictated by: Forrest Carcamo M.D. on 03/25/2024 at 16:32 Approved by: Forrest Carcamo M.D. on 03/25/2024 at 16:38 MDM Narrative Medical decision making narrative: ED course: This is a 48-year-old female presenting to the emergency department due to right upper quadrant abdominal pain after having diarrhea treated with antibiotics and [place]. History of cholecystectomy in the past. CT abdomen and pelvis showed no concerning new abnormalities. Recommended bland diet and to follow up as needed if pain continues. It did mention a few small low-density pancreatic lesions which I strongly recommended she follow up with the primary care provider about. lab work reassuring as well. CC: Abdominal pain Complicating co-morbidities: history of cholecystectomy Data collected from: Previous notes Medical records reviewed: Patient was seen about 4 months ago due to cellulitis of the face. History of uterine fibroids, heavy menstrual periods, painful menstrual periods. History of in 1994, cholecystectomy in 1992 as well as a tubal ligation. Differential considered, but not limited to: gastroenteritis, cholelithiasis, cholangitis, cholecystitis, appendicitis Exam documented above, pertinent findings include: tenderness to right-sided abdominal Lab Test results independently reviewed as above. Pertinent findings: Lab work showed no concerning findings Imaging studies independently reviewed: CT showed no acute findings other than pancreatic lesions Scores Used: None MIPS Elements: None Consultations: None Treatments: Tylenol and Zofran Re-evaluations: none Discussion: Discussed plan with the patient was comfortable with the plan Diagnosis: abdominal pain Disposition: see below, along with detailed discharge instructions that have been reviewed with patient as well as indications for ED re-evaluation and additional outpatient follow up <Laverne Conner, - Last Filed: 03/26/24 19:30> Lab Data Labs: Lab Results 03/25/24 Range/Units 13:42 WBC 8.9 (4.5-11.0) X10^3/uL RBC 4.23 (4.0-5.2) X10^6/uL Hgb 13.3 (12.0-16.0) g/dL Hct 38.8 (36-46) % MCV 91.7 (80-100) fL MCH 31.4 (26-34) PG MCHC 34.3 (30-36) % RDW 13.5 (11.6-14.8) % Plt Count 375 (150-400) X10^3/uL Neut % (Auto) 64.6 (50-75) % Lymph % (Auto) 26.5 (25-40) % [place] % (Auto) 6.9 (3-14) % Eos % (Auto) 1.3 L (2-4) % Baso % (Auto) 0.7 (0-2) % Neut # (Auto) 5700 (8388-6237) /uL Lymph # (Auto) 2300 (2201-5941) /uL [place] # (Auto) 600 (0-900) /uL Eos # (Auto) 100 (0-450) /uL Baso # (Auto) 100 (0-100) /uL Sodium 137 (137-145) mmol/L Potassium 4.1 (3.4-5.1) mmol/L Chloride 108 H (98-107) mmol/L Carbon Dioxide 22 (22-32) mmol/L BUN 19 H (7-17) mg/dL Creatinine 0.68 (0.52-1.04) mg/dL Estimated GFR > 60 (>60) mL/min BUN/Creatinine Ratio 27.9 H (6-22) Glucose 121 H (70-100) mg/dL Calcium 8.8 (8.4-10.2) mg/dL Total Bilirubin 0.4 (0.2-1.3) mg/dL AST 30 (14-36) IU/L ALT 32 (<35) IU/L Alkaline Phosphatase 74 (38-126) U/L Total Protein 6.7 (6.3-8.2) g/dL Albumin 4.2 (3.5-5.0) g/dL Globulin 2.5 (1.7-4.1) g/dL Albumin/Globulin Ratio 1.7 (1.0-2.8) Lipase 164 (23-300) U/L Point of care testing: Urine Dip Bedside Urine Glucose Negative Bedside Urine Bilirubin - Negative Bedside Urine Ketone - Negative Urine Specific Dorena 1.015 Bedside Urine Occult Blood - Negative Bedside Urine pH 5.5 Bedside Urine Protein - Negative Bedside Urine Urobilinogen - Negative Bedside Urine Nitrite - Negative Bedside Urine Leukocytes - Negative Esterase Discharge Plan Departure Patient Disposition: Home Clinical Impression: Abdominal pain Activity Restrictions/Additional Instructions: Thank you for coming to the [facility] Emergency Department today. History discussed the were no significant findings on your CT scan. There was no evidence of appendicitis. He did show pancreatic cysts which need to be followed up with your primary care provider. Please contact them on Thursday to inform them of these. Your lab work today was reassuring. I recommend Tylenol and ibuprofen as the needed for the pain. I also recommend a mild diet of bananas, oatmeal, broth. Please return to the emergency department if you develop any Significant new or worsening pain, fevers, or any other concerning signs or symptoms. I hope you feel better soon. Please follow up with your primary care provider within a week if your symptoms continue. If you do not have a primary care provider please contact the [facility] Resource line at [phone]. They will ask some questions about your medical history and help you get set up with a provider in the community. Prescriptions: No Action doxycycline monohydrate 100 mg capsule 100 mg PO BID mupirocin 2 % ointment 1 applic topical TID Qty: 15 0RF gabapentin enacarbil 300 mg tablet extended release 300 mg PO DAILY Qty: 7 0RF Referrals: Jose Enrique Marshall MD [Primary Care Provider] - Stand Alone Forms: Patient Portal/API/Survey ED Sign-out <Laverne Conner, - Last Filed: 03/26/24 19:30> Cosign ED Attending Emerson Attestation: I was immediately available in the department for consultation.
--- NOTE | 2024-03-25 14:52 | DI.CT.S_ITS ---
PROCEDURE: CT ABDOMEN PELVIS W CON INDICATIONS: R sided abdominal pain TECHNIQUE: After the administration of intravenous contrast, axial sections acquired from the lung bases to the pubic symphysis. Coronal and sagittal reformats were performed. For radiation dose reduction, the following was used: automated exposure control, adjustment of mA and/or kV according to patient size. COMPARISON: None. FINDINGS: Image quality: Diagnostic. Lower Chest: No significant findings. ABDOMEN: Liver: No solid mass. Gallbladder: Absent Biliary ducts: No biliary dilation. Pancreas: There are 2 small low-density lesions, likely representing subcentimeter IPMN. Spleen: Size is within normal limits. Adrenal Glands: No adrenal nodules. Kidneys and Ureters: No hydronephrosis. No solid mass. No complex renal cystic lesion which requires follow up. Stomach and Bowel: Large incidental duodenal diverticulum containing predominantly air and some debris. Normal colonic caliber, without significant wall thickening. Question identification of a gas-filled appendix overlying right psoas muscle. Reference axial image 92 of series 2. Diverticulosis without evidence of acute diverticulitis. Peritoneum: No abnormal intraperitoneal fluid. No free air. Ventral Wall: No significant ventral hernia. Abdominal Nodes: No retroperitoneal or mesenteric adenopathy by size criteria. Vessels: Aorta and inferior vena cava are normal in size. PELVIS: Pelvic Organs: Retroverted uterus. No adnexal masses.. Bladder: No bladder wall thickening, accounting for underdistention. Pelvic Nodes: No enlarged lymph nodes. Miscellaneous: No inguinal hernias are seen. Bones: No aggressive osseous abnormality. Disc bulge with mild canal stenosis at L4-L5. IMPRESSION: 1. No acute abdominal process noted. 2. Normal appendix. 3. Remote cholecystectomy. 4. Large duodenal diverticulum, typically an incidental finding. 5. Diverticulosis without evidence of acute diverticulitis. 6. There are a couple of small low-density pancreatic lesions, likely representing subcentimeter IPMN. Comment: Consider follow-up pancreas protocol MRI in 12 months. Dictated by: Forrest Carcamo M.D. on 03/25/2024 at 16:32 Approved by: Forrest Carcamo M.D. on 03/25/2024 at 16:38
[2024-03-25] MEDS: ONDANSETRON 4 MG ODT PO (16:30)
[2024-03-25] MEDS: ACETAMINOPHEN 325 MG TABLET 975 MG PO (16:30)
[2024-03-25 17:38] VITALS: BP 130/60; PULSE 72; RESP 16; O2SAT 99
== END 2024-03-25 17:43 | disposition home or self-care (01) ==
PROVIDERS: Emergency Medicine; Emergency Provider Physician Assistant Medical; PCP Internal Medicine
DX: R10.11 Right upper quadrant pain (principal); Z90.49 Acquired absence of other specified parts of digestive tract
CPT/HCPCS: 36415; 74177; 80053; 81003; 83690; 85025; 99284; Q9967

== ENCOUNTER → 2024-05-06 07:54 | Outpatient (CLI) | payer OTHER, SELFPAY ==
[2024-05-06 08:46] LABS: Cholesterol 179 mg/dL (140-199); HDL Cholesterol 74 mg/dL (40-60); LDL Cholesterol Calculated 86 mg/dL (<100); Triglycerides 94 mg/dL (35-150)
== END ==
PROVIDERS: PCP Nurse Practitioner Family; Referring Provider Nurse Practitioner Family; Visit Provider Nurse Practitioner Family
DX: E78.5 Hyperlipidemia, unspecified (principal)
CPT/HCPCS: 36415; 80061

== ENCOUNTER → 2025-01-25 13:57 | Outpatient (CLI) | payer OTHER, SELFPAY | PROVIDERS: PCP Nurse Practitioner Family; Visit Provider Nurse Practitioner Family | DX: R39.15 Urgency of urination (principal) | CPT/HCPCS: 87077; 87086 ==

== ENCOUNTER → 2025-02-24 07:06 | Outpatient (CLI) | payer OTHER, SELFPAY ==
--- NOTE | 2025-02-24 07:08 | DI.MRI.S_ITS ---
PROCEDURE: MR AB PANCREATIC/MRCP PROTOCOL INDICATIONS: small low-density pancreatic lesions follow up TECHNIQUE: Coronal HASTE through the abdomen, axial 2-D FLASH in- and [id number], and breath-hold T2 FSE with fat saturation through the biliary system and pancreas. Oblique coronal and axial thin-slice HASTE, radial thick-slab HASTE centered on the extrahepatic bile ducts. Intravenous secretin: Not requested. COMPARISON: [facility], CT, CT ABDOMEN PELVIS W CON, 03/25/2024, 15:51. FINDINGS: Image quality: Diagnostic Lower chest: Lung bases appear unremarkable. Liver: Hepatomegaly at 22 cm. Suspected Nelson's lobe Gallbladder and biliary system: Gallbladder is not seen. Prominent CBD at 1 cm. No obstructing mass or stone identified. This may be related to post cholecystectomy state, correlate LFTs. Pancreas: A cystic lesion is seen at the pancreatic tail, measuring about 0.8 cm. No associated ductal dilation or soft tissue enhancement. A 2nd lesion is not seen today. Spleen: Nonenlarged Adrenals: No discrete nodules Kidneys: No solid renal mass. No hydronephrosis Vessels and lymph nodes: The main portal vein appears patent. No abdominal aneurysm. No enlarged lymph nodes by size criteria. Bowel and peritoneum: Suspect duodenal diverticulum is seen adjacent to the ampulla. No bowel obstruction. Moderate colonic fecal loading. No drainable abscess or ascites Body wall: Unremarkable Bones: There are degenerative osseous changes. IMPRESSION: 0.8 cm pancreatic cystic lesion at the tail, stable, possibly a small cystic neoplasm such as IPMN. 1-2 year follow-up MRI is suggested. A 2nd lesion is not seen today. Other findings above. Dictated by: Floyd Bustos M.D. on 02/24/2025 at 10:03 Approved by: Floyd Bustos M.D. on 02/24/2025 at 10:08
== END ==
LOC: MRI 07:07
PROVIDERS: PCP Nurse Practitioner Family; Referring Provider Nurse Practitioner Family; Visit Provider Nurse Practitioner Family
DX: K86.9 Disease of pancreas, unspecified (principal); R16.0 Hepatomegaly, not elsewhere classified
CPT/HCPCS: 74183; A9579